=== PATIENT | male | born 1990 | race Caucasian/White ===

== ENCOUNTER 2018-06-14 18:40 | Emergency (ER) | payer MEDICAID ==
[~2018-06-14] VITALS: Ht 170.2 cm; Wt 62.7 kg
[~2018-06-14 18:40] MED LIST: ARIP30TA4 PO; DIVA500T2 PO
[2018-06-14 18:59] VITALS: BP 119/77
--- NOTE | 2018-06-14 19:29 | NUR ---
PT UPSET AT DISCHARGE. YELLING AT RN AND TECH. PT TOSSED DC PAPERWORK TO THE GROUND AND REFUSED TO TAKE IT.
== END 2018-06-14 19:49 | disposition home or self-care (01) ==
LOC: ED 19:43
DX: F20.89 Other schizophrenia (principal); Z76.0 Encounter for issue of repeat prescription; F41.9 Anxiety disorder, unspecified; F32.9 Major depressive disorder, single episode, unspecified
CPT/HCPCS: 99281

== ENCOUNTER 2019-04-14 20:07 | Inpatient (IN) | payer MEDICAID ==
[~2019-04-14] VITALS: Ht 170.2 cm; Wt 52.1 kg
[2019-04-14 20:45] VITALS: BP 134/94
[2019-04-14] MEDS ORDERED: LORazepam 1MG TABLET ONE (20:54)
[2019-04-14] MEDS ORDERED: DIPHENHYDRAMINE 50 MG CAPSULE ONE (20:54)
[2019-04-14] MEDS ORDERED: HALOPERIDOL 5 MG TABLET ONE (20:54)
[2019-04-14] MEDS ORDERED: HALOPERIDOL 5 MG/ML ONE (20:55)
[2019-04-14] MEDS ORDERED: LORazepam 2 MG/ML, 1ML ONE (20:55)
[2019-04-14] MEDS ORDERED: DIPHENHYDRAMINE 50 MG/ML, 1ML ONE (20:55)
[2019-04-14] MEDS ORDERED: HALOPERIDOL 5 MG TABLET PO ONE (21:30)
[2019-04-14] MEDS: PLEASE ENTER HEIGHT AND WEIGHT MC SCH (21:30)
[2019-04-14] MEDS ORDERED: LORazepam 1MG TABLET PO ONE (21:30)
[2019-04-14] MEDS ORDERED: DIPHENHYDRAMINE 25 MG CAPSULE PO ONE (21:30)
[2019-04-15 00:01] LABS: MICROSCOPIC NOT IND
[2019-04-15 00:04] LABS: CULTURE INDICATED? NO
[2019-04-15 00:58] VITALS: BP 134/94
[2019-04-15] MEDS: PLEASE ENTER HEIGHT AND WEIGHT MC SCH (04:52)
[2019-04-15 07:07] LABS: CHOL/HDL RATIO 2.5; FREE T4 (FREE THYROXINE) 1.18 ng/dL (0.76-1.46); LDL/HDL RATIO 1.1 (0.5-3.0)
[2019-04-15] MEDS ORDERED: DIVA500T4 PO (15:26)
[2019-04-15] MEDS ORDERED: ARIP15TA3 PO (15:26)
[2019-04-15 19:13] VITALS: BP 89/50
[2019-04-15 19:30] VITALS: BP 107/72
[2019-04-15] MEDS ORDERED: ARIPIPRAZOLE 15 MG TABLET PO SCH (21:00)
[2019-04-15] MEDS ORDERED: DIVALPROEX 500 MG TAB.ER.24H PO SCH (21:00)
[2019-04-16 07:24] VITALS: BP 95/57
== END 2019-04-16 09:18 | disposition home or self-care (01) | DRG 885 ==
LOC: 3E 20:35
PROVIDERS: ADMIT Psychiatry & Neurology Psychosomatic Medicine; ATTEND Psychiatry & Neurology Psychosomatic Medicine
DX: F25.0 Schizoaffective disorder, bipolar type (principal); R45.851 Suicidal ideations; F17.210 Nicotine dependence, cigarettes, uncomplicated; Z79.899 Other long term (current) drug therapy; Z88.0 Allergy status to penicillin; Z71.6 Tobacco abuse counseling
CPT/HCPCS: 36415; 80061; 81003; 82607; 84439; 84443; 93005; 99285; J1200; J1630; J2060; Q0163

== ENCOUNTER 2019-07-25 21:12 | Emergency (ER) | payer MEDICAID ==
[~2019-07-25] VITALS: Ht 170.2 cm; Wt 57.6 kg
[~2019-07-25 21:12] MED LIST changes: +ARIP15TA3 PO; +ARIPIPRAZOLE 15 MG TABLET PO ONE; +DIVA500T4 PO
--- NOTE | 2019-07-25 21:59 | NUR ---
ASSESSMENT MADE. SEEN BY ERP. BLOOD DRAWN BY RESPIRATORY CARE PROGRAM DIRECTOR.
[2019-07-25 22:05] LABS: BASOPHILS # (AUTO) 0.04 x10^3/uL (0-0.1); BASOPHILS % (AUTO) 1 % (0-1); EOSINOPHILS # (AUTO) 0.28 x10^3/uL (0-0.4); EOSINOPHILS % (AUTO) 5 % (1-7); LYMPHOCYTES # (AUTO) 2.74 x10^3/uL (1-3.4); LYMPHOCYTES % (AUTO) 45 % (22-44); MD NO; MEAN CORPUSCULAR HEMOGLOBIN 31.9 pg (27.5-34.5); MEAN CORPUSCULAR HGB CONC 34.2 g/dL (33.2-36.2); MEAN CORPUSCULAR VOLUME 93.4 fL (81-97); MEAN PLATELET VOLUME 10.9 fL (7.4-10.4); MONOCYTES # (AUTO) 0.28 x10^3/uL (0.2-0.8); MONOCYTES % (AUTO) 5 % (2-9); NEUTROPHILS # (AUTO) 2.75 x10^3/uL (1.8-6.8); NEUTROPHILS % (AUTO) 45 % (42-75); PLATELET COUNT 207 x10^3/uL (130-400); RED BLOOD COUNT 4.83 x10^6/uL (4.38-5.82); RED CELL DISTRIBUTION WIDTH 12.6 % (9.4-14.8)
[2019-07-25 22:13] LABS: ALBUMIN 3.9 g/dL (3.4-5.0); ANION GAP 5 mmol/L (5-15); CALCIUM 8.8 mg/dL (8.5-10.1); CHLORIDE 112 mmol/L (98-107); CREATININE 0.69 mg/dL (0.7-1.3)
[2019-07-25 22:17] LABS: SALICYLATE LEVEL < 1.7 mg/dL (2.8-20.0)
--- NOTE | 2019-07-25 22:52 | NUR ---
BREATHALYZER 0.0, MEAL PROVIDED.
--- NOTE | 2019-07-25 23:16 | NUR ---
URINE SENT TO LAB.
[2019-07-25 23:20] LABS: AMPHETAMINE SCREEN, URINE Negative (Negative); BARBITURATE SCREEN, URINE Negative (Negative); BENZODIAZEPINE SCREEN, URINE Negative (Negative); CANNABINOID SCREEN, URINE Negative (Negative); COCAINE SCREEN, URINE Negative (Negative); METHADONE SCREEN, URINE Negative (Negative); OPIATE SCREEN, URINE Negative (Negative)
--- NOTE | 2019-07-25 23:48 | NUR ---
ERP AT BEDSIDE FOR RE-EVALUATION.
[2019-07-25] MEDS ORDERED: ARIPIPRAZOLE 10 MG TABLET ONE (23:59)
[2019-07-25] MEDS ORDERED: ARIPIPRAZOLE 5 MG TABLET ONE (23:59)
[2019-07-26] MEDS ORDERED: DIVALPROEX 500 MG TAB.ER.24H ONE
--- NOTE | 2019-07-26 00:36 | NUR ---
TASK RN: PT AMBULATED STEADILY TO ROOM 4. ALL BELONGINGS BAGGED AND PLACED IN LOCKER BY TECH. NOBLES PRESENT.
--- NOTE | 2019-07-26 00:43 | NUR ---
[facility]x [facility], no answer from them, off hook-tone at the end.
--- NOTE | 2019-07-26 00:47 | NUR ---
report from Sharita florentino. Pt resting with no needs at this time. Sitter in view of pt.
--- NOTE | 2019-07-26 02:00 | NUR ---
PT SLEEPING. EVEN RISE AND FALL OF CHEST OBSERVED. SITTER IN VIEW OF PT
--- NOTE | 2019-07-26 03:17 | NUR ---
PT SLEEPING. EVEN RISE AND FALL OF CHEST OBSERVED. SITTER IN VIEW OF PT
--- NOTE | 2019-07-26 03:55 | NUR ---
PACKET FAXED TO [facility], [facility], [facility], [facility], AND [facility].
--- NOTE | 2019-07-26 04:15 | NUR ---
pt was denied by [facility] due to insurance per Irasema
--- NOTE | 2019-07-26 04:16 | NUR ---
pT RESTING WITH EYES CLOSED. EVEN RISE AND FALL OF CHEST OBSERVED. PT IN NAD. SITTER IN VIEW OF PT.
--- NOTE | 2019-07-26 05:11 | NUR ---
SPOKE WITH RN AT [facility]. SHE WILL TALK TO HER MD AND CALL BACK
--- NOTE | 2019-07-26 05:23 | NUR ---
spoke with toni at [facility]. The accepting md is Dr Vega. They are requesting transport at 0800 this morning.
[2019-07-26 05:27] VITALS: BP 119/71
--- NOTE | 2019-07-26 06:23 | NUR ---
pT RESTING WITH EYES CLOSED. EVEN RISE AND FALL OF CHEST OBSERVED. PT IN NAD. SITTER IN VIEW OF PT.
--- NOTE | 2019-07-26 06:52 | NUR ---
REPORT RECEIVED FROM MADDIE CRANE.
--- NOTE | 2019-07-26 07:10 | NUR ---
PT SLEEPING. RESPS EVEN AND UNLABORED. SITTER MONITORING FROM [facility] FOR SAFETY.
--- NOTE | 2019-07-26 08:14 | NUR ---
belongings bags x 2 given to ems. pt amb to exit with ems.
[2019-07-26] MEDS ORDERED: DIVALPROEX 500 MG TAB.ER.24H PO SCH (09:00)
== END 2019-07-26 08:07 ==
LOC: ED 07-26 01:31
DX: R45.851 Suicidal ideations (principal); F33.9 Major depressive disorder, recurrent, unspecified; F25.1 Schizoaffective disorder, depressive type; F17.200 Nicotine dependence, unspecified, uncomplicated; Z91.14 Patient's other noncompliance with medication regimen
CPT/HCPCS: 36415; 80048; 80307; 82040; 85025; 99284; 99285

== ENCOUNTER 2019-08-06 14:28 | Emergency (ER) | payer MEDICAID ==
[~2019-08-06] VITALS: Ht 170.2 cm; Wt 58.0 kg
[~2019-08-06 14:28] MED LIST changes: -ARIPIPRAZOLE 15 MG TABLET PO ONE
[2019-08-06 14:32] VITALS: BP 137/99
[2019-08-06 15:10] LABS: BASOPHILS # (AUTO) 0.05 x10^3/uL (0-0.1); BASOPHILS % (AUTO) 1 % (0-1); EOSINOPHILS # (AUTO) 0.15 x10^3/uL (0-0.4); EOSINOPHILS % (AUTO) 1 % (1-7); LYMPHOCYTES # (AUTO) 2.62 x10^3/uL (1-3.4); LYMPHOCYTES % (AUTO) 25 % (22-44); MD NO; MEAN CORPUSCULAR HEMOGLOBIN 31.4 pg (27.5-34.5); MEAN CORPUSCULAR HGB CONC 33.5 g/dL (33.2-36.2); MEAN CORPUSCULAR VOLUME 93.5 fL (81-97); MEAN PLATELET VOLUME 10.4 fL (7.4-10.4); MONOCYTES # (AUTO) 0.69 x10^3/uL (0.2-0.8); MONOCYTES % (AUTO) 7 % (2-9); NEUTROPHILS # (AUTO) 6.95 x10^3/uL (1.8-6.8); NEUTROPHILS % (AUTO) 66 % (42-75); PLATELET COUNT 256 x10^3/uL (130-400); RED BLOOD COUNT 5.53 x10^6/uL (4.38-5.82); RED CELL DISTRIBUTION WIDTH 13.3 % (9.4-14.8)
[2019-08-06 15:19] LABS: ALBUMIN 4.5 g/dL (3.4-5.0); ANION GAP 9 mmol/L (5-15); CALCIUM 9.6 mg/dL (8.5-10.1); CHLORIDE 108 mmol/L (98-107); CREATININE 0.82 mg/dL (0.7-1.3); SALICYLATE LEVEL < 1.7 mg/dL (2.8-20.0)
[2019-08-06] MEDS ORDERED: ARIPIPRAZOLE 10 MG TABLET ONE (16:25)
[2019-08-06] MEDS ORDERED: ARIPIPRAZOLE 15 MG TABLET PO ONE (16:30)
--- NOTE | 2019-08-06 16:32 | NUR ---
Patient given discharge instructions and they have confirmed that they understand the instructions. Patient ambulatory with steady gait.
== END 2019-08-06 16:34 | disposition home or self-care (01) ==
LOC: ED 14:54
DX: F28 Other psychotic disorder not due to a substance or known physiological condition (principal); F25.9 Schizoaffective disorder, unspecified; R45.851 Suicidal ideations; F32.9 Major depressive disorder, single episode, unspecified; R41.82 Altered mental status, unspecified
CPT/HCPCS: 36415; 71045; 80048; 80307; 82040; 85025; 99284

== ENCOUNTER 2019-08-08 08:54 | Emergency (ER) | payer MEDICAID ==
[~2019-08-08] VITALS: Ht 170.2 cm; Wt 58.8 kg
[2019-08-08 08:59] VITALS: BP 128/94
--- NOTE | 2019-08-08 09:21 | NUR ---
seen at [facility] yest for same. +SI. "I want to shoot myself or run into traffic or jump off a bridge or something" doesn't have access to a gun. wants to walk into traffic. sts past suicide attempt by walkuing into traffic. wants admit to inpatient or cab voucher to [facility]. alejandroz in room. belongings placed in bags. sts compliant w/ depakote or abilify. plan for psych garage door installer eval. as
--- NOTE | 2019-08-08 09:36 | NUR ---
2 BAGS BELONGINGS PLACED IN LOCKER, LABELED. UA SENT. SITTER IN PLACE. CALL IRIZARRY IN REACH. PT COMPLIANT BUT NEEDS REDIRECTION. GIVEN WATER.
--- NOTE | 2019-08-08 10:31 | NUR ---
PT RESTING IN BED NAD DROWSING AWAITING COLLISION CENTER MANAGER.
--- NOTE | 2019-08-08 11:40 | NUR ---
REPORT TO JOVANI CRANE. PT MOVED TO ROOM TWO. AWAITING PSYCH GARAGE MANAGER.
--- NOTE | 2019-08-08 11:47 | NUR ---
ZACHARY HORTON AT BEDSIDE. AWAITING ORDERS.
== END 2019-08-08 12:12 | disposition home or self-care (01) ==
LOC: ED 09:35 → MERGE 09:35 → ED 12:12
DX: F25.8 Other schizoaffective disorders (principal); F17.200 Nicotine dependence, unspecified, uncomplicated; R45.851 Suicidal ideations
CPT/HCPCS: 99284

== ENCOUNTER 2020-01-04 03:12 | Emergency (ER) | payer MEDICAID ==
--- NOTE | 2020-01-04 03:18 | NUR ---
pt was called to triage room and refused to come in room and then left lobby after mumbling a lot of incoherant words and "he said he was good"
== END 2020-01-04 03:21 | disposition left against medical advice (07) ==
LOC: ED 03:15
DX: R68.89 Other general symptoms and signs (principal); Z53.21 Procedure and treatment not carried out due to patient leaving prior to being seen by health care provider

== ENCOUNTER 2020-02-07 02:27 | Emergency (ER) | payer MEDICAID ==
[~2020-02-07] VITALS: Ht 170.2 cm; Wt 59.0 kg
[2020-02-07 02:30] VITALS: BP 122/81
== END 2020-02-07 03:14 | disposition home or self-care (01) ==
LOC: ED 03:00
DX: F20.9 Schizophrenia, unspecified (principal); Z76.0 Encounter for issue of repeat prescription; Z88.0 Allergy status to penicillin
CPT/HCPCS: 99283

== ENCOUNTER 2020-11-20 12:13 | Inpatient (IN) | payer MEDICAID ==
[~2020-11-20] VITALS: Ht 170.2 cm; Wt 54.5 kg
[2020-11-20] MEDS ORDERED: BISACODYL 10 MG SUPP PR PRN (14:00)
[2020-11-20] MEDS ORDERED: ACETAMINOPHEN 325 MG TABLET PO PRN (14:00)
[2020-11-20] MEDS ORDERED: POLYETHYLENE GLYCOL 17 GM PACKET PO PRN (14:00)
[2020-11-20] MEDS ORDERED: ONDANSETRON ODT 4 MG PO PRN (14:00)
[2020-11-20] MEDS ORDERED: DOCUSATE 100 MG CAPSULE PO PRN (14:00)
[2020-11-20] MEDS ORDERED: PLEASE ENTER HEIGHT AND WEIGHT MC SCH (15:00)
[2020-11-20 16:29] VITALS: BP 119/90
[2020-11-20 19:30] VITALS: BP 107/71
[2020-11-21 07:23] VITALS: BP 95/66
[2020-11-21 09:51] LABS: MICROSCOPIC NOT IND
[2020-11-21] MEDS: ARIPIPRAZOLE 15 MG TABLET PO SCH (14:47)
[2020-11-21] MEDS ORDERED: TRAZODONE 50MG TABLET PO ONE (15:00)
[2020-11-21 19:42] VITALS: BP 96/60
[2020-11-21] MEDS: DIVALPROEX 500 MG TAB.ER.24H PO SCH (20:13)
[2020-11-22 07:31] VITALS: BP 96/60
[2020-11-22 07:35] VITALS: BP 114/76
[2020-11-22] MEDS: ARIPIPRAZOLE 15 MG TABLET PO SCH (08:31)
[2020-11-22 19:33] VITALS: BP 106/76
[2020-11-22] MEDS: DIVALPROEX 500 MG TAB.ER.24H PO SCH (20:29)
[2020-11-23 07:15] VITALS: BP 111/73
[2020-11-23] MEDS: ARIPIPRAZOLE 15 MG TABLET PO SCH (08:31)
[2020-11-23 19:11] VITALS: BP 103/66
[2020-11-23] MEDS: DIVALPROEX 500 MG TAB.ER.24H PO SCH (20:43)
[2020-11-24 07:51] VITALS: BP 109/72
[2020-11-24] MEDS ORDERED: DIVA500T4 PO (08:44)
[2020-11-24] MEDS ORDERED: ARIP15TA3 PO (08:44)
[2020-11-24] MEDS: ARIPIPRAZOLE 15 MG TABLET PO SCH (08:59)
== END 2020-11-24 12:19 | disposition home or self-care (01) | DRG 885 ==
LOC: 3E 14:28
PROVIDERS: ADMIT Psychiatry & Neurology Psychosomatic Medicine; ATTEND Psychiatry & Neurology Psychosomatic Medicine
DX: F25.0 Schizoaffective disorder, bipolar type (principal); R45.851 Suicidal ideations; F17.210 Nicotine dependence, cigarettes, uncomplicated; F15.21 Other stimulant dependence, in remission; Z79.899 Other long term (current) drug therapy; Z88.0 Allergy status to penicillin; Z88.8 Allergy status to other drugs, medicaments and biological substances
CPT/HCPCS: 71045; 81003; 93005

== ENCOUNTER 2021-01-25 04:09 | Emergency (ER) | payer MEDICAID ==
[~2021-01-25] VITALS: Ht 170.2 cm; Wt 57.0 kg
[2021-01-25 04:12] VITALS: BP 120/86
== END 2021-01-25 08:48 | disposition home or self-care (01) ==
LOC: ED 04:38
DX: F20.9 Schizophrenia, unspecified (principal); F17.200 Nicotine dependence, unspecified, uncomplicated